=== PATIENT | female | born 1990 | race African-American/Black ===

== ENCOUNTER 2019-04-26 08:02 | Inpatient (IN) | payer SELFPAY ==
[2019-04-26] MEDS ORDERED: LACTATED RINGERS 1,000 ML ONE (11:27)
[2019-04-26] MEDS ORDERED: PEPCID IV ONE (11:54)
[2019-04-26] MEDS ORDERED: REGLAN IV ONE (11:54)
[2019-04-26] MEDS ORDERED: BICITRA PO ONE (11:54)
[2019-04-26] MEDS ORDERED: LACTATED RINGERS 1,000 ML IV SCH ×2 (12:00→14:00)
[2019-04-26] MEDS ORDERED: PITOCin/NS 20 UNIT/1000ML DRIP 20 UNITS/1,000 ML BAG IV SCH ×2 (12:00→17:00)
[2019-04-26] MEDS ORDERED: BRETHINE SUB-Q ONE (12:07)
[2019-04-26 12:10] LABS: Basophils % (Auto) 0.5 % (0.0-1.8); Eosinophils # (Auto) 0.2 K/mm3 (0.0-0.4); Eosinophils % (Auto) 2.3 % (0.0-4.3); Hematocrit 39.1 % (30.3-42.9); Hemoglobin 13.5 gm/dl (10.1-14.3); Lymphocytes # (Auto) 1.5 K/mm3 (1.2-5.4); Lymphocytes % (Auto) 15.3 % (13.4-35.0); Mean Corpuscular HGB Conc 35 % (30-34); Mean Corpuscular Volume 97 fl (79-97); Monocytes # (Auto) 0.5 K/mm3 (0.0-0.8); Monocytes % (Auto) 4.9 % (0.0-7.3); Platelet Count 162 K/mm3 (140-440); Red Blood Count 4.04 M/mm3 (3.65-5.03); Red Cell Distribution Width 14.7 % (13.2-15.2)
[2019-04-26] MEDS ORDERED: BRETHINE ONE (12:14)
[2019-04-26] MEDS ORDERED: ANCEF/STERILE WATER 2 GM/20 ML 2 GM/20 ML SYRINGE IV NR (13:00)
--- NOTE | 2019-04-26 13:32 | History and Physical Report ---
History of Present Illness Date of examination: 04/26/19 Date of admission: 04/26/19 Chief complaint: SIUP at 39 weeks and 1 day gestation with SROM. History of present illness: Patient is a 28 year old , LMP 07/26/18, EDC 05/02/19 at 39 weeks and 1 day gestation who presented to the triage complaining of fluid leakage per vagina and irregular contractions. She denies any bleeding. She had a previous C/section. Past History Past Surgical History: section Family/Genetic History: none Social history: no significant social history - Obstetrical History Expected Date of Delivery: 05/02/19 Actual Gestation: 39 Week(s) 1 Day(s) : 3 Number of Pregnancies: 1 Spontaneous Abortions: 1 Medications and Allergies Allergies Allergy/AdvReac Type Severity Reaction Status Date / Time No Known Allergies Allergy Unverified 04/26/19 11:45 Home Medications Medication Instructions Recorded Confirmed Last Taken Type Vitamin 1 caplet PO QDAY 04/26/19 04/26/19 04/25/19 09:00 History Active Meds: Active Medications Oxytocin/Sodium Chloride (Pitocin/Ns 20 Unit/1000ml Drip) 20 units in 1,000 mls @ 0 mls/hr IV TITR ALAN Lactated Ringer's (Lactated Ringers) 1,000 mls @ 2,250 mls/hr IV PREOP ALAN Stop: 04/27/19 12:27 Last Admin: 04/26/19 11:30 Dose: 2,250 mls/hr Documented by: Cefazolin Sodium (Ancef/Sterile Water 2 Gm/20 Ml) 2 gm in 20 mls @ 80 mls/hr IV PREOP NR; Protocol Stop: 04/26/19 23:59 - Vital Signs Vital signs: Vital Signs Temp Pulse Resp BP Pulse Ox 99.1 F 69 16 108/73 96 04/26/19 08:46 04/26/19 08:46 04/26/19 08:46 04/26/19 08:46 04/26/19 08:46 Temp Pulse Resp BP Pulse Ox 99.1 F 99 H 16 110/63 94 04/26/19 08:46 04/26/19 13:25 04/26/19 08:46 04/26/19 13:17 04/26/19 13:25 - Physical Exam Cardiovascular: Normal S1, Normal S2 Lungs: Positive: Clear to auscultation Vulva: both: normal Adnexa: both: normal Deep Tendon Reflex Grade: Normal +2 - Obstetrical FHR: category 1 Uterine Contraction Monitor Mode: External Cervical Dilatation: 2 Cervical Effacement Percentage: 90 station: -2 Uterine Contraction Pattern: Irregular Results Result Diagrams: 04/26/19 09:25 Abnormal lab results 04/26/19 Range/Units 09:25 MCH 33 H (28-32) pg MCHC 35 H (30-34) % Seg Neutrophils % 77.0 H (40.0-70.0) % All other labs normal. Assessment and Plan - Patient Problems (1) 39 weeks gestation of Current Visit: Yes Status: Acute (2) SROM (spontaneous rupture of membranes) Current Visit: Yes Status: Acute (3) Previous section Current Visit: Yes Status: Acute Plan to address problem: Admit to labor floor. Routine preop labs. IV hydration. Keep NPO. monitoring. Patient was counselled for repeat C/section. Risks, benefits, and alternatives of the procedure were discussed in detail with the patient which included but not limited to the risk of infection, hemorrhage requiring blood transfusion, injury to the bowel or bladder and blood vessels. The patient expressed understanding, her questions were answered, and she gave informed consent. Anesthesia notified.
[2019-04-26] MEDS ORDERED: BRETHINE IVP PRN (13:34)
[2019-04-26] MEDS ORDERED: MINERAL OIL PO PRN (13:34)
--- NOTE | 2019-04-26 14:03 | Anesthesia Consultation ---
Anesthesia Consult and Med Hx Date of service: 04/26/19 - Airway Anesthetic Teeth Evaluation: Good ROM Head & Neck: Adequate Mental/Hyoid Distance: Adequate Mallampati Class: Class II Intubation Access Assessment: Good - Pulmonary Exam CTA: Yes - Cardiac Exam Cardiac Exam: RRR - Pre-Operative Health Status ASA Pre-Surgery Classification: ASA2 Proposed Anesthetic Plan: Spinal - Pulmonary Hx Asthma: No - Cardiovascular System Hx Hypertension: No - Central Nervous System Hx Seizures: No Hx Psychiatric Problems: No - Endocrine Hx Renal Disease: No Hx Hypothyroidism: No Hx Hyperthyroidism: No - Hematic Hx Anemia: No Hx Sickle Cell Disease: No - Other Systems Hx Alcohol Use: No
--- NOTE | 2019-04-26 14:04 | Anesthesia Day of Surgery ---
Anesthesia Day of Surgery - Day of Surgery Patient Examined: Yes Patient H&P Reviewed: Yes Patient is NPO: Yes
[2019-04-26] MEDS ORDERED: WATER FOR IRRIG STERILE IR ONE (15:15)
[2019-04-26] MEDS ORDERED: NACL 0.9% IR ONE (15:15)
[2019-04-26] MEDS ORDERED: ANCEF/STERILE WATER 2 GM/20 ML IV ONE (15:25)
[2019-04-26] MEDS ORDERED: METHERGINE IM ONE ×2 (15:45→15:48)
[2019-04-26] MEDS ORDERED: ZOFRAN ONE (15:54)
[2019-04-26] MEDS ORDERED: DILAUDID ONE (15:57)
[2019-04-26] MEDS ORDERED: ANUCORT-HC PR PRN (16:24)
[2019-04-26] MEDS ORDERED: MYLICON PO PRN (16:24)
[2019-04-26] MEDS ORDERED: TUCKS PAD TP PRN (16:24)
[2019-04-26] MEDS ORDERED: TYLENOL PO PRN (16:24)
[2019-04-26] MEDS ORDERED: LANSINOH TP PRN (16:24)
[2019-04-26] MEDS ORDERED: SENOKOT PO PRN (16:24)
[2019-04-26] MEDS ORDERED: MORPHINE IV PRN ×3 (16:24→16:39)
[2019-04-26] MEDS ORDERED: PHENERGAN PR PRN ×2 (16:24→16:39)
[2019-04-26] MEDS ORDERED: MILK OF MAGNESIA PO PRN (16:24)
[2019-04-26] MEDS ORDERED: NARCAN 0.4 MG/1 ML IV PRN ×2 (16:24→16:39)
[2019-04-26] MEDS ORDERED: TORADOL IV PRN (16:24)
[2019-04-26] MEDS ORDERED: ZOFRAN IV PRN ×2 (16:24→16:39)
--- NOTE | 2019-04-26 16:34 | Operative Report ---
Operative Report Operative Report: Preoperative diagnosis 1. SIUP at 39 weeks and 1 day gestation in early labor. 2. Spontaneous rupture of membranes. 3. Previous C/section. Postoperative diagnosis: Same. Procedure: Repeat low-transverse section. Surgeon: Dr. Barrera Cylinder Press Operator Helper: none Anesthesia: spinal. IVF: RL 1000 cc EBL: 300 cc Urine: 300 cc clear Complications: none. Intraoperative findings: 1. A female infant found in an YANIRA position, delivered at 3:41 PM, Apgars 8 at 1 minute and 8 at 5 minutes, weight 7 lbs. 10 oz. 2. Normal fallopian tubes and ovaries bilaterally. Procedure details: Risks, benefits, and alternatives of the procedure were discussed in detail with the patient which included but not limited to the risk of infection, hemorrhage requiring blood transfusion, injury to the bowel or bladder and blood vessels. The patient expressed understanding, her questions were answered, and she gave informed consent. The patient was taken to the operating room with an IV fluid infusing Ringers lactate. In the operating room, she was placed in a sitting position and given spinal anesthesia. She was then placed in a dorsal supine position with a leftward tilt. Martinez catheter in Venodyne boots were placed. The abdomen was washed and she was prepared and draped in usual sterile fashion. After conf irming adequate anesthesia, the Pfannenstiel skin incision was made in the lower abdomen about 2 cm above the pubic symphysis using the scalpel. This incision was carried down to the underlying fascia using the Bovie. The fascia was opened bilaterally in a curvilinear fashion using the Bovie. 2 straight Kocker clamps were used to grasp the upper edge of the fascia from which the underlying rectus abdominis muscles was dissected off using the Bovie. A similar procedure was done with the lower edge of the fascia to dissect the underlying rectus abdominis muscle. The muscle was bluntly from the midline by pulling. The parietal peritoneum was grasped with 2 hemostat clamps and entered sharply using Metzenbaum scissors. A quick survey of the anatomy revealed a gravid uterus, normal fallopian tubes and ovaries bilaterally. A bladder flap was created. Kirill'O retractor was placed in the incision for proper visualization. A low transverse incision was made in the lower uterine segment using the scalpel and extended bilaterally in a curvilinear fashion using bandage scissors. There was copious amount of clear amniotic fluids. The infant was found in an YANIRA position, the head was delivered atraumatically followed by the delivery of the shoulders and the rest of the body at 3:41 PM. The cord was clamped 2 and cut and the was handed off to the waiting clay pigeon setter. The was a female, Apgars were 8 at 1 minute and 8 at 5 minutes, weight was 7 pounds and 10 ounces. Cord blood was collected. The placenta was delivered manually and it was complete with a three-vessel cord. The uterine cavity was cleaned of clots and debris using dry lap sponges. The uterine incision was repaired in a running locked fashion using 0 Vicryl sutures. A second layer of imbrication was placed. The gutters were cleaned of clots and debris using dry lap sponges. After confirming adequate hemostasis, the instruments were removed from the abdominal cavity. The rectus muscle was reapproximated in an interrupted fashion using 0 Vicryl sutures. The fascia was closed in a running fashion using 0 Vicryl sutures. The subcutaneous adipose layer was closed with 2.0 chromic sutures. The skin was closed in a subcutaneous fashion with 4 vicryl on a Oren needle. Sterile dressing was placed. The counts of laps, needles, sponges, and instruments were correct 2. The patient tolerated the procedure well, she was taken to the recovery room in a stable condition. with SROM. 2. Previous C/section. Postoperative diagnosis: Same. Procedure: Repeat low-transverse section. Surgeon: Dr. Barrera Cylinder Press Operator Helper: none Anesthesia: epidural. IVF: RL 1000 cc EBL: 300 cc Urine: 300 cc clear Complications: none. Intraoperative findings: 1. A female infant found in an YANIRA position, delivered at 3:41 PM, Apgars 8 at 1 minute and 8 at 5 minutes, weight 7 lbs. 10 oz. 2. Normal fallopian tubes and ovaries bilaterally. Procedure details: Risks, benefits, and alternatives of the procedure were discussed in detail with the patient which included but not limited to the risk of infection, hemorrhage requiring blood transfusion, injury to the bowel or bladder and blood vessels. The patient expressed understanding, her questions were answered, and she gave informed consent. The patient was taken to the operating room with an IV fluid infusing Ringers lactate. In the operating room, she was placed in a sitting position and given spinal anesthesia. She was then placed in a dorsal supine position with a leftward tilt. Martinez catheter in Venodyne boots were placed. The abdomen was washed and she was prepared and draped in usual sterile fashion. After confirming adequate anesthesia, the Pfannenstiel skin incision was made in the lower abdomen about 2 cm above the pubic symphysis using the scalpel. This incision was carried down to the underlying fascia using the Bovie. The fascia was opened bilaterally in a curvilinear fashion using the Bovie. 2 straight Kocker clamps were used to grasp the upper edge of the fascia from which the underlying rectus abdominis muscles was dissected off using the Bovie. A similar procedure was done with the lower edge of the fascia to dissect the underlying rectus abdominis muscle. The muscle was bluntly from the midline by pulling. The parietal peritoneum was grasped with 2 hemostat clamps and entered sharply using Metzenbaum scissors. A quick survey of the anatomy revealed a gravid uterus, normal fallopian tubes and ovaries bilaterally. A bladder flap was created. Kirill'O retractor was placed in the incision for proper visualization. A low transverse incision was made in the lower uterine segment using the scalpel and extended bilaterally in a curvilinear fashion using bandage scissors. There was copious amount of clear amniotic fluids. The was found in an YANIRA position, the head was delivered atraumatically followed by the delivery of the shoulders and the rest of the body at 3:41 PM. The cord was clamped 2 and cut and the infant was handed off to the waiting clay pigeon setter. The was a female, Apgars were 8 at 1 minute and 8 at 5 minutes, weight was 7 pounds and 10 ounces. Cord blood was collected. The placenta was delivered manually and it was complete with a three-vessel cord. The uterine cavity was cleaned of clots and debris using dry lap sponges. The uterine incision was repaired in a running locked fashion using 0 Vicryl sutures. A second layer of imbrication was placed. The gutters were cleaned of clots and debris using dry lap sponges. After confirming adequate hemostasis, the instruments were removed from the abdominal cavity. The rectus muscle was reapproximated in an interrupted fashion using 0 Vicryl sutures. The fascia was closed in a running fashion using 0 Vicryl sutures. The subcutaneous adipose tissue was closed with 2.0 chromic sutures. The skin was closed in a subcutaneous fashion with 4.0 vicryl on a Oren needle. Sterile dressing was placed. The counts of laps, needles, sponges, and instruments were correct 2. The patient tolerated the procedure well, she was taken to the recovery room in a s table condition.
[2019-04-26] MEDS ORDERED: PHENERGAN PO PRN (16:39)
[2019-04-26] MEDS ORDERED: DILAUDID IV PRN ×2 (16:39)
--- NOTE | 2019-04-26 16:41 | Post Anesthesia Evaluation ---
- Post Anesthesia Evaluation Patient Participated: Yes Airway Patent: Yes Stable Respiratory Function: Yes Nausea/Vomiting: No Temp > 96.8F: Yes Pain Manageable: Yes Adequeate Hydration: Yes Anesthesia Complications: No Block Receding Appropriately: Yes Patient on Ventilator: No
[2019-04-26] MEDS ORDERED: SODIUM CHLORIDE FLUSH SYRINGE 10 ML IV NR ×2 (17:00)
[2019-04-26] MEDS: TORADOL IV PRN (17:43)
[2019-04-27] MEDS: TORADOL IV PRN (02:16)
[2019-04-27 07:18] LABS: Hematocrit 39.3 % (30.3-42.9); Hemoglobin 13.3 gm/dl (10.1-14.3)
--- NOTE | 2019-04-27 09:53 | Progress Note ---
Assessment and Plan A: POD#1 s/p Repeat c/s pain well controlled Bottle feeding Eating, drinking and ambulating without difficulty Stable P: Routine PP/PO orders Encouraged ambulation in room Anticipate discharge home in 24-48 hrs Subjective - Subjective Date of service: 04/27/19 Principal diagnosis: POD#1 s/p Repeat c/s Patient reports: appetite normal, voiding normally, pain well controlled, flatus, ambulating normally, no bowel movement [place]: doing well, bottle feeding Objective - Vital Signs Latest vital signs: Vital Signs Temp Pulse Resp BP BP Pulse Ox 04/27/19 07:48 98.6 F 66 16 107/73 94 04/27/19 05:59 99.2 F 61 18 108/70 93 04/27/19 01:31 98.0 F 63 16 119/76 93 04/26/19 20:56 97.8 F 71 20 111/69 96 04/26/19 18:13 18 04/26/19 18:03 98.2 F 75 18 115/74 95 04/26/19 17:37 74 17 115/76 97 04/26/19 17:33 98.7 F 04/26/19 17:31 80 20 116/77 97 04/26/19 17:21 70 16 112/70 97 04/26/19 17:05 74 18 107/74 97 04/26/19 16:50 94 H 18 111/61 04/26/19 16:45 88 18 113/63 04/26/19 16:40 90 14 114/58 99 04/26/19 16:37 97.8 F 90 12 113/68 98 04/26/19 14:48 96 H 111/61 04/26/19 14:29 104 H 95 04/26/19 14:25 99.1 F 04/26/19 14:24 104 H 95 04/26/19 14:20 100 H 94 04/26/19 14:19 110 H 95 04/26/19 14:18 93 H 107/61 04/26/19 14:15 100 H 94 04/26/19 14:14 93 H 95 04/26/19 14:09 80 97 04/26/19 14:04 88 95 04/26/19 13:59 90 97 04/26/19 13:54 85 97 04/26/19 13:49 85 97 04/26/19 13:48 88 109/64 04/26/19 13:45 88 94 04/26/19 13:44 94 H 96 04/26/19 13:39 87 97 04/26/19 13:34 98 04/26/19 13:29 82 98 04/26/19 13:25 99 H 94 04/26/19 13:24 91 H 96 04/26/19 13:19 95 H 97 04/26/19 13:17 101 H 110/63 04/26/19 13:14 99 H 95 04/26/19 13:09 103 H 95 04/26/19 13:08 105 H 94 04/26/19 13:04 97 H 96 04/26/19 13:03 101 H 113/64 04/26/19 12:59 101 H 95 04/26/19 12:54 96 H 96 04/26/19 12:49 90 95 04/26/19 12:48 76 112/60 04/26/19 12:44 101 H 94 04/26/19 12:40 93 H 106/61 04/26/19 12:39 82 95 04/26/19 12:37 93 H 94 04/26/19 12:34 90 95 04/26/19 12:31 80 112/63 04/26/19 12:29 80 98 04/26/19 12:25 79 95 04/26/19 12:19 85 97 04/26/19 12:14 82 98 04/26/19 12:09 72 97 04/26/19 12:04 68 98 04/26/19 11:59 64 96 04/26/19 11:55 73 97 04/26/19 11:50 68 98 04/26/19 11:44 69 96 04/26/19 11:39 68 96 04/26/19 11:34 74 96 04/26/19 11:30 75 97 04/26/19 11:24 77 97 04/26/19 11:19 71 96 04/26/19 11:14 71 97 04/26/19 11:10 67 96 04/26/19 11:05 66 96 04/26/19 11:00 99.0 F Intake and Output 04/26/19 04/27/19 04/27/19 23:59 07:59 15:59 Intake Total 1600 420 Output Total 1100 1500 Balance 500 -1080 Intake: IV 1600 Intake, Free Water 420 Output: Urine 1100 1500 Indwelling Catheter 550 1500 Other: Total, Output Amount 250 1000 Estimated Blood Loss 300 - Exam Breasts: Present: normal Cardiovascular: Present: Regular rate, Normal S1, Normal S2, No murmurs Lungs: Present: Clear to auscultation, Normal air movement Abdomen: Present: normal appearance, soft, normal bowel sounds. Absent: distention Vulva: both: normal Uterus: Present: firm, fundal height at umbilicus Extremities: Present: normal Deep Tendon Reflex Grade: Normal +2 Incision: Present: normal, dry, intact, dressed (Pressure dressing intact) - Labs Labs: Abnormal lab results 04/26/19 Range/Units 09:25 MCH 33 H (28-32) pg MCHC 35 H (30-34) % Seg Neutrophils % 77.0 H (40.0-70.0) %
[2019-04-27] MEDS ORDERED: FEOSOL PO SCH (10:00)
[2019-04-27] MEDS ORDERED: PRENATAL VITAMIN PO SCH (10:00)
[2019-04-27] MEDS: PERCOCET 5/325 PO PRN (20:00)
[2019-04-27] MEDS: IBUPROFEN PO PRN (21:54)
[2019-04-28] MEDS: PERCOCET 5/325 PO PRN ×2 (05:44→16:33)
--- NOTE | 2019-04-28 10:08 | Progress Note ---
Assessment and Plan A: POD #2 Stable P: Follow Routine PostOp Orders D/C Home today per patient request RTO in One Week Subjective - Subjective Date of service: 04/28/19 Principal diagnosis: POD#1 s/p Repeat c/s Patient reports: appetite normal, voiding normally, pain well controlled, flatus, ambulating normally : doing well Objective - Vital Signs Latest vital signs: Vital Signs Temp Pulse Resp BP Pulse Ox 04/28/19 08:45 98.0 F 70 18 110/70 96 04/28/19 05:44 18 04/28/19 01:05 66 04/28/19 01:02 98.0 F 18 92/59 04/27/19 21:54 20 04/27/19 20:00 18 04/27/19 16:26 97.5 F L 87 16 94/57 97 04/27/19 12:22 98.6 F 67 16 102/66 96 Intake and Output 04/27/19 04/28/19 04/28/19 22:59 06:59 14:59 Intake Total 300 Output Total 800 Balance -800 300 Intake: Intake, Free Water 300 Output: Urine 800 Void 800 Other: Total, Output Amount 800 - Exam Breasts: Present: normal Cardiovascular: Present: Regular rate Lungs: Present: Clear to auscultation, Normal air movement Abdomen: Present: normal appearance, soft, normal bowel sounds Uterus: Present: normal, firm, fundal height below umbilicus Extremities: Present: normal Incision: Present: normal, dry, intact
--- NOTE | 2019-04-28 10:09 | Discharge Summary ---
Providers - Providers Date of Admission: 04/26/19 08:03 Date of discharge: 04/28/19 Attending physician: MARISA FLOREZ MD Primary care physician: MARISA FLOREZ MD Hospitalization Reason for admission: section Delivery: Procedure: repeat low transverse Episiotomy: none Laceration: none Incision: normal, dry, intact Other procedures: none complications: none Discharge diagnosis: IUP at term delivered [place] baby: female Condition at discharge: Good Disposition: DC-01 TO HOME OR SELFCARE Plan - Provider Discharge Summary Activity: routine, no sex for 6 weeks, no heavy lifting 4 weeks, no strenuous exercise Diet: routine Instructions: routine Additional instructions: [] Smoking cessation referral if applicable(refer to patient education folder for contact #) [] Refer to [facility] Booklet Call your doctor immediately for: * Fever > 100.5 * Heavy vaginal bleeding ( >1 pad per hour) * Severe persistent headache * Shortness of breath * Reddened, hot, painful area to leg or breast * Drainage or odor from incision. * Keep incision clean and dry at all times and follow doctor's instructions regarding bathing/showering - Follow up plan Follow up: MARISA FLOREZ MD [Primary Care Provider] - 7 Days
[2019-04-28] MEDS: IBUPROFEN PO PRN (16:32)
[2019-04-28 17:28] VITALS: BP 99/75
== END 2019-04-28 17:35 | disposition home or self-care (01) | DRG 788 ==
LOC: TRG 08:02 → APU 08:03 → TRG 08:03 → LD 11:11 → OB 17:58
PROVIDERS: ADMIT Obstetrics & Gynecology; ATTEND Obstetrics & Gynecology
PROC: 10D00Z1 Extraction of Products of Conception, Low, Open Approach (ICD-10-PCS; principal; 2019-04-26)
DX: O34.211 Maternal care for low transverse scar from previous cesarean delivery (principal); Z37.0 Single live birth; Z3A.39 39 weeks gestation of pregnancy
CPT/HCPCS: 36415; 85014; 85018; 85025; 86592; 86850; 86900; 86901; G0378; J0690; J1170; J1885; J2210; J2270; J2405; J2590; J2765; J3105; J7120